=== PATIENT | female | born 1955 | race Two or more races ===

== ENCOUNTER 2017-04-30 00:47 | Emergency (ER) | payer MEDICAID ==
[2017-04-30 06:11] VITALS: BP 136/77
== END 2017-04-30 06:11 | disposition home or self-care (01) ==
LOC: ED 00:47
DX: S20.212A Contusion of left front wall of thorax, initial encounter (principal); W50.0XXA Accidental hit or strike by another person, initial encounter; Y93.89 Activity, other specified; Y99.8 Other external cause status; Y92.89 Other specified places as the place of occurrence of the external cause